=== PATIENT | female | born 1975 | race Caucasian/White ===

== ENCOUNTER 2016-08-29 00:13 | Emergency (ER) | payer OTHER ==
[~2016-08-29 00:13] MED LIST: BENAZEPRIL40 MG PO; COL100 PO; COR6 PO; DONNATAL PO; DUL5 PO; L40 PO; LOM PO; LORAZEPAM1 PO; OMEPRAZOLE D/R20 MG PO; TRAZODONE100 M1 PO; VICODIN ES 3001 TAB PO; ZOFRAN4 M1 PO
[2016-08-29 01:23] LABS: PLATELET COUNT 260 x10^3mcL (130-400)
[2016-08-29 01:24] LABS: CALCIUM 9.2 mg/dL (8.5-10.1); CARBON DIOXIDE 29.5 mmol/L (21-32); CREATININE SERUM 1.1 mg/dL (0.6-1.0); POTASSIUM SERUM 3.3 mmol/L (3.5-5.1)
[2016-08-29 01:35] LABS: RED CELL DISTRIBUTION WIDTH 14.7 % (11.5-14.5)
[2016-08-29 01:38] LABS: ALBUMIN 3.4 g/dL (3.4-5.0); BILIRUBIN TOTAL 0.41 mg/dL (0.20-1.00); TOTAL PROTEIN, SERUM 7.2 g/dL (6.4-8.2)
[2016-08-29 01:39] LABS: BAND NEUTROPHIL 1 % (0-10); METAMYELOCTE 2 % (0-2); MONOCYTE 12 % (0-7); SEGMENTED NEUTROPHILS 51 % (37-75)
[2016-08-29 01:42] LABS: CK-MB < 0.5 ng/mL (0-3.6); CREATINE KINASE 26 U/L (26-192); PLATELET MORPHOLOGY LARGE PLATELET SEEN; rbc morphology (normal/abnorm) NORMAL (NORMAL)
[2016-08-29 03:08] VITALS: BP 107/60
== END 2016-08-29 03:08 | disposition home or self-care (01) ==
LOC: ED 00:13
PROVIDERS: Emergency Medicine
DX: J98.01 Acute bronchospasm (principal); I10 Essential (primary) hypertension; F41.9 Anxiety disorder, unspecified; F32.9 Major depressive disorder, single episode, unspecified; K57.90 Diverticulosis of intestine, part unspecified, without perforation or abscess without bleeding; Z88.1 Allergy status to other antibiotic agents; Z88.8 Allergy status to other drugs, medicaments and biological substances
CPT/HCPCS: 83880; J7613; J7644; Q0092

== ENCOUNTER 2017-02-12 16:41 | Emergency (ER) | payer OTHER ==
--- NOTE | 2017-02-12 17:08 | NUR ---
PT PRESENTS TO THE ED WITH THE COMPLAINT OF SHORTNESS OF BREATH AND CHEST PAIN WHICH BEGAN AT 0730 THIS MORNING. 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 THE PT DENIES ANY INTERVENTION FOR THE BLOCKAGE. PT REPORTS THAT SHE DOESN'T LIKE THE WAIT TIMES AT [facility] SO SHE DID NOT WANT TO GO BACK THERE. PTS CHEST PAIN IS SHARP-LIKE IN QAULITY AND RADIATES TO THE LEFT SHOULDER AND LEFT UPPER EXTREMITY.
--- NOTE | 2017-02-12 17:10 | NUR ---
MSE COMPLETED BY DR THORPE
--- NOTE | 2017-02-12 17:11 | NUR ---
XRAY AT BEDSIDE FOR CXR
[2017-02-12] MEDS ORDERED: FLOVENT HF0.11 MG/A1 (17:28)
[2017-02-12] MEDS ORDERED: VENTOLIN H0.09 MG/A1 (17:29)
[2017-02-12] MEDS ORDERED: ATROVENT H0.017 MG/1 (17:29)
[2017-02-12] MEDS ORDERED: BENAZEPRIL HYDR40 M1 PO (17:31)
[2017-02-12] MEDS ORDERED: ZOFRAN8 MG PO (17:31)
[2017-02-12] MEDS ORDERED: CYCLOBENZAPRINE10 MG PO (17:32)
[2017-02-12] MEDS ORDERED: FUROSEMIDE40 MG PO (17:32)
--- NOTE | 2017-02-12 17:32 | NUR ---
BREATHING TREATMENT IN PROGRESS BY RT PER DR. ILA MAN.
[2017-02-12] MEDS ORDERED: LORAZEPAM1 MG PO (17:33)
[2017-02-12] MEDS ORDERED: CARVEDILOL6.25 M1 PO ×2 (17:33→17:34)
[2017-02-12] MEDS ORDERED: LINZESS290 MCG PO (17:34)
[2017-02-12] MEDS ORDERED: DILTIAZEM HCL120 M2 PO (17:35)
[2017-02-12] MEDS ORDERED: ZOLOFT50 MG PO (17:36)
[2017-02-12] MEDS ORDERED: CLOPIDOGREL75 M1 PO (17:36)
[2017-02-12] MEDS ORDERED: PROTONIX20 MG PO (17:38)
[2017-02-12] MEDS ORDERED: DRISDOL50000 IU PO (17:39)
[2017-02-12] MEDS ORDERED: BAYER ASPIRIN R81 MG PO (17:40)
[2017-02-12] MEDS ORDERED: ATORVASTATIN CA40 M1 PO (17:41)
[2017-02-12] MEDS ORDERED: NEU300 PO (17:42)
[2017-02-12] MEDS ORDERED: REQUIP0.5 MG PO (17:42)
[2017-02-12] MEDS ORDERED: POTASSIUM CITR10 MEQ PO (17:43)
[2017-02-12] MEDS ORDERED: TRAZODONE100 MG PO (17:43)
[2017-02-12] MEDS ORDERED: METOCLOPRAMIDE H5 M1 PO (17:45)
[2017-02-12] MEDS ORDERED: NITROGLYCERIN0.4 MG SL (17:45)
[2017-02-12 18:03] LABS: CALCIUM 9.1 mg/dL (8.5-10.1); CARBON DIOXIDE 22.1 mmol/L (21-32); CREATININE SERUM 1.1 mg/dL (0.6-1.0); POTASSIUM SERUM 3.6 mmol/L (3.5-5.1)
[2017-02-12 18:07] LABS: ALBUMIN 3.7 g/dL (3.4-5.0); BILIRUBIN TOTAL 0.52 mg/dL (0.20-1.00); TOTAL PROTEIN, SERUM 8.1 g/dL (6.4-8.2)
--- NOTE | 2017-02-12 19:02 | NUR ---
REPORT CALLED TO GUDREEP ANGELO ON TELE UNIT AT THIS TIME.
--- NOTE | 2017-02-12 19:15 | NUR ---
PT REQUESTING TO LEAVE THE HOSPITAL BECAUSE SHE STATES THAT HER MOTHER IS ILL AND SHE NEEDS TO GO TO [place] AND BE WITH HER. DR. THORPE AT BEDSIDE SPEAKING WITH THE PT ABOUT LEAVING THE HOSPITAL AGAINST MEDICAL ADVICE. PT IS A/O X 4. DR. THORPE EXPLAINED ALL OF THE BENIFITS OF BEING ADMITTED AND ALL OF THE RISKS OF LEAVING [facility] WHICH INCLUDE EVENTS THAT COULD POSSIBLY LEAD UP TO . PT VERBALIZED UNDERSTANDING OF ALL THE RISKS AND STILL REQUESTED TO LEAVE AMA. PT PROVIDED WITH AMA FORMED. PT SIGNED AND FORM PLACED INTO THE PTS CHART.
[2017-02-12 19:25] VITALS: BP 111/70
[2017-02-12 19:33] LABS: BASOPHIL % 0.3 % (0-2); PLATELET COUNT 169 x10^3mcL (130-400)
[2017-02-12 20:08] LABS: T3 TOTAL 1.48 ng/mL
[2017-02-12 21:40] LABS: CHOLESTEROL/HDL RATIO 3.8; MAGNESIUM 2.2 mg/dL (1.8-2.4); PHOSPHOROUS 3.3 mg/dL (2.5-4.9)
[2017-02-12 21:48] LABS: FREE T4 1.29 ng/dL (0.76-1.46); FREE THYROXINE INDEX 3.6 ug/dL (1.4-4.5); T4(THYROXINE) 10.3 ug/dL (4.7-13.3)
== END 2017-02-12 19:25 | disposition left against medical advice (07) ==
LOC: ED 16:41 → DU 18:34 → ED 19:25
PROVIDERS: Emergency Medicine; Family Medicine
DX: R07.89 Other chest pain (principal); I10 Essential (primary) hypertension; I25.10 Atherosclerotic heart disease of native coronary artery without angina pectoris; C06.9 Malignant neoplasm of mouth, unspecified; Z88.1 Allergy status to other antibiotic agents; Z88.8 Allergy status to other drugs, medicaments and biological substances
CPT/HCPCS: 83880; 84439; J2405; J3010; J7030; J7613; J7644; Q0092